=== PATIENT | female | born 2000 | race African-American/Black ===

== ENCOUNTER 2019-07-26 17:18 | Emergency (ER) | payer MEDICAID ==
[~2019-07-26] VITALS: Ht 165.1 cm; Wt 87.0 kg
[2019-07-26] MEDS ORDERED: ACETAMINOPHEN 325MG TABLET PO STA (17:49)
[2019-07-26] MEDS ORDERED: SODIUM CHLORIDE 0.9% 1,000 ML IV ONE (17:49)
[2019-07-26] MEDS ORDERED: TETANUS, DIPHTHERIA, PERTUSSIS VAC/PF 0.5ML (>7YR OLD) IM ONE (18:00)
[2019-07-26] MEDS ORDERED: LIDOCAINE 1%/EPI 1:100,000 10 ML VIAL IJ ONE (18:00)
[2019-07-26] MEDS ORDERED: BACITRACIN ZINC OINT UDPKT TOP ONE (18:00)
[2019-07-26 18:33] LABS: BASOPHILS % 0.5 % (0.0-2.0); EOSINOPHILS % 0.4 % (0.0-5.0); HEMOGLOBIN. 13.4 g/dL (12.0-16.0); LYMPHOCYTES % 32.3 % (20.0-50.0); MEAN CORPUSCULAR HEMOGLOBIN 27.6 pg (28.0-32.0); MEAN CORPUSCULAR VOLUME 84.3 fL (81.0-99.0); MEAN PLATELET VOLUME 7.6 fl (7.4-10.4); MONOCYTES % 8.5 % (2.0-8.0); NEUTROPHILS % 58.3 % (40.0-76.0); PLATELET 326 x1000/uL (130-400); RED BLOOD CELL COUNT 4.86 mill/uL (4.2-5.4)
[2019-07-26 18:36] LABS: CHLORIDE 110 mEq/L (98-107)
[2019-07-26 18:46] LABS: HCG SCREEN NEGATIVE
[2019-07-26] MEDS ORDERED: LIDOCAINE HCL/EPINEPHRINE 1%-EPI 1:100,000 20 ML VIAL INFIL SCH (19:38)
[2019-07-26 22:53] VITALS: BP 121/75
== END 2019-07-26 22:55 | disposition home or self-care (01) ==
LOC: ER 19:36
DX: R55 Syncope and collapse (principal); S01.81XA Laceration without foreign body of other part of head, initial encounter; W01.110A Fall on same level from slipping, tripping and stumbling with subsequent striking against sharp glass, initial encounter; Y93.01 Activity, walking, marching and hiking; Y92.008 Other place in unspecified non-institutional (private) residence as the place of occurrence of the external cause; I45.6 Pre-excitation syndrome; Z23 Encounter for immunization
CPT/HCPCS: 12011; 36415; 70450; 71045; 80053; 83735; 84484; 84703; 85025; 90471; 90715; 93005; 96360; 96361; 99284; A4217; J3490; J7030; Z7610